=== PATIENT | female | born 1970 | race African-American/Black ===

== ENCOUNTER 2017-01-11 18:32 | Emergency (ER) | payer BC ==
[~2017-01-11 18:32] MED LIST: METFORMIN HCL500 MG PO; PROVENTIL0.09 MG/A1 IH; SYMBICORT1 AE2 IH
[2017-01-11 20:20] LABS: CALCIUM 8.7 mg/dL (8.5-10.1); CARBON DIOXIDE 30.4 mmol/L (21-32); CHLORIDE SERUM 108 mmol/L (98-107); GFR1 > 60 mL/min; GLUCOSE SERUM 77 mg/dL (74-106); POTASSIUM SERUM 4.1 mmol/L (3.5-5.1); SODIUM SERUM 142 mmol/L (136-145)
[2017-01-11 20:23] LABS: BASOPHIL % 0.9 % (0-2)
[2017-01-11 20:25] LABS: ALKALINE PHOSPHATASE 111 U/L (46-116); ALT/SGPT 29 U/L (14-59); AST/SGOT 17 U/L (15-37); BILIRUBIN TOTAL 0.4 mg/dL (0.20-1.00); TOTAL PROTEIN, SERUM 7.3 g/dL (6.4-8.2)
[2017-01-11 20:28] LABS: ALBUMIN 2.9 g/dL (3.4-5.0)
[2017-01-11 20:30] LABS: PLATELET COUNT 442 x10^3mcL (130-400); RED CELL DISTRIBUTION WIDTH 16.9 % (11.5-14.5)
[2017-01-11 22:32] VITALS: BP 105/88
== END 2017-01-11 22:32 | disposition home or self-care (01) ==
LOC: ED 18:32
PROVIDERS: Emergency Medicine
DX: M94.0 Chondrocostal junction syndrome [Tietze] (principal); F41.9 Anxiety disorder, unspecified; M19.90 Unspecified osteoarthritis, unspecified site; Z90.49 Acquired absence of other specified parts of digestive tract; K58.9 Irritable bowel syndrome, unspecified; Z88.0 Allergy status to penicillin; Z88.5 Allergy status to narcotic agent
CPT/HCPCS: 82962; J1885

== ENCOUNTER 2018-04-23 14:26 | Emergency (ER) | payer OTHER ==
[~2018-04-23] VITALS: Ht 167.6 cm; Wt 149.2 kg
[2018-04-23 14:28] VITALS: Ht 167.6 cm; Wt 149.2 kg
[2018-04-23 16:03] VITALS: BP 143/87
== END 2018-04-23 16:03 | disposition home or self-care (01) ==
LOC: ED 14:26
DX: M25.511 Pain in right shoulder (principal); M62.838 Other muscle spasm; N61.1 Abscess of the breast and nipple; E11.9 Type 2 diabetes mellitus without complications; J45.909 Unspecified asthma, uncomplicated; E66.01 Morbid (severe) obesity due to excess calories; M19.90 Unspecified osteoarthritis, unspecified site; Z68.43 Body mass index [BMI] 50.0-59.9, adult; Z90.49 Acquired absence of other specified parts of digestive tract
CPT/HCPCS: 82962

== ENCOUNTER 2018-05-15 14:27 | Emergency (ER) | payer OTHER ==
[~2018-05-15] VITALS: Ht 167.6 cm; Wt 149.2 kg
[2018-05-15 14:42] VITALS: Ht 167.6 cm; Wt 149.2 kg
[2018-05-15 16:39] LABS: PLATELET COUNT 407 x10^3mcL (130-400); RED CELL DISTRIBUTION WIDTH 17.1 % (11.5-14.5)
[2018-05-15 16:52] LABS: CALCIUM 9.6 mg/dL (8.5-10.1); CARBON DIOXIDE 30.1 mmol/L (21-32); CHLORIDE SERUM 104 mmol/L (98-107); CREATININE SERUM 0.8 mg/dL (0.6-1.0); GFR1 > 60 mL/min; GLUCOSE SERUM 89 mg/dL (74-106); POTASSIUM SERUM 3.9 mmol/L (3.5-5.1); SODIUM SERUM 140 mmol/L (136-145)
[2018-05-15 16:57] LABS: ALBUMIN 3.3 g/dL (3.4-5.0); ALKALINE PHOSPHATASE 119 U/L (46-116); ALT/SGPT 27 U/L (14-59); AST/SGOT 17 U/L (15-37); BILIRUBIN TOTAL 0.4 mg/dL (0.20-1.00)
[2018-05-15 17:48] VITALS: BP 140/89
== END 2018-05-15 17:48 | disposition home or self-care (01) ==
LOC: ED 14:27
PROVIDERS: Emergency Medicine
DX: R22.43 Localized swelling, mass and lump, lower limb, bilateral (principal); J45.909 Unspecified asthma, uncomplicated; E11.9 Type 2 diabetes mellitus without complications; F41.9 Anxiety disorder, unspecified; Z88.0 Allergy status to penicillin; Z88.6 Allergy status to analgesic agent; Z88.5 Allergy status to narcotic agent; Z90.49 Acquired absence of other specified parts of digestive tract
CPT/HCPCS: 36415; Q0092

== ENCOUNTER 2018-07-11 20:22 | Inpatient (IN) | payer OTHER ==
[~2018-07-11] VITALS: Ht 167.6 cm; Wt 148.0 kg
[2018-07-11 20:28] VITALS: Ht 167.6 cm; Wt 148.0 kg
[2018-07-11 22:18] LABS: BASOPHIL % 0.8 % (0-2); PLATELET COUNT 393 x10^3mcL (130-400)
[2018-07-11 22:21] LABS: RED CELL DISTRIBUTION WIDTH 17.4 % (11.5-14.5)
[2018-07-11 22:23] LABS: CALCIUM 8.9 mg/dL (8.5-10.1); CARBON DIOXIDE 29.9 mmol/L (21-32); CHLORIDE SERUM 106 mmol/L (98-107); CREATININE SERUM 0.9 mg/dL (0.6-1.0); GFR1 > 60 mL/min; GLUCOSE SERUM 99 mg/dL (74-106); POTASSIUM SERUM 3.4 mmol/L (3.5-5.1); SODIUM SERUM 143 mmol/L (136-145)
[2018-07-11 22:28] LABS: ALKALINE PHOSPHATASE 105 U/L (46-116); ALT/SGPT 25 U/L (14-59); AST/SGOT 16 U/L (15-37); BILIRUBIN TOTAL 0.2 mg/dL (0.20-1.00); TOTAL PROTEIN, SERUM 7.2 g/dL (6.4-8.2)
[2018-07-12 00:26] VITALS: BP 114/48
[2018-07-12 01:00] VITALS: BP 114/48
[2018-07-12 05:51] VITALS: BP 116/46
[2018-07-12 06:48] LABS: BASOPHIL % 0.7 % (0-2); PLATELET COUNT 373 x10^3mcL (130-400)
[2018-07-12 06:49] LABS: RED CELL DISTRIBUTION WIDTH 17.2 % (11.5-14.5)
[2018-07-12 07:05] LABS: CALCIUM 8.5 mg/dL (8.5-10.1); CARBON DIOXIDE 27.3 mmol/L (21-32); CHLORIDE SERUM 107 mmol/L (98-107); CREATININE SERUM 0.8 mg/dL (0.6-1.0); GFR1 > 60 mL/min; GLUCOSE SERUM 96 mg/dL (74-106); POTASSIUM SERUM 3.6 mmol/L (3.5-5.1); SODIUM SERUM 142 mmol/L (136-145)
[2018-07-12 09:10] VITALS: BP 124/52
[2018-07-12 12:13] VITALS: BP 111/59
[2018-07-12 15:22] VITALS: BP 111/59
== END 2018-07-12 17:09 | disposition home or self-care (01) | DRG 202 ==
LOC: ED 20:22 → DU 23:21
PROVIDERS: Emergency Medicine; ADMIT Internal Medicine Pulmonary Disease
DX: J45.901 Unspecified asthma with (acute) exacerbation (principal); Z68.43 Body mass index [BMI] 50.0-59.9, adult; I24.9 Acute ischemic heart disease, unspecified; F41.9 Anxiety disorder, unspecified; M19.90 Unspecified osteoarthritis, unspecified site; J10.1 Influenza due to other identified influenza virus with other respiratory manifestations; E66.01 Morbid (severe) obesity due to excess calories; R73.03 Prediabetes; Z77.22 Contact with and (suspected) exposure to environmental tobacco smoke (acute) (chronic); Z88.0 Allergy status to penicillin; Z88.5 Allergy status to narcotic agent; Z90.49 Acquired absence of other specified parts of digestive tract; Z79.899 Other long term (current) drug therapy
CPT/HCPCS: 82962; 83880; 87804; J7620; Q0092

== ENCOUNTER 2019-02-16 18:10 | Emergency (ER) | payer OTHER ==
[~2019-02-16] VITALS: Ht 165.1 cm; Wt 143.3 kg
[2019-02-16 18:16] VITALS: Ht 165.1 cm; Wt 143.3 kg
[2019-02-16 20:00] VITALS: BP 155/80
== END 2019-02-16 20:00 | disposition home or self-care (01) ==
LOC: ED 18:10
DX: I87.8 Other specified disorders of veins (principal); J45.909 Unspecified asthma, uncomplicated; E11.9 Type 2 diabetes mellitus without complications; F41.9 Anxiety disorder, unspecified; M19.90 Unspecified osteoarthritis, unspecified site; Z90.49 Acquired absence of other specified parts of digestive tract; Z88.0 Allergy status to penicillin; Z88.5 Allergy status to narcotic agent

== ENCOUNTER 2019-05-02 15:50 | Emergency (ER) | payer OTHER ==
[~2019-05-02] VITALS: Ht 167.6 cm; Wt 142.4 kg
[2019-05-02 15:59] VITALS: Ht 167.6 cm; Wt 142.4 kg
[2019-05-02 16:46] LABS: BASOPHIL % 0.2 % (0-2)
[2019-05-02 16:50] LABS: PLATELET COUNT 460 x10^3mcL (130-400); RED CELL DISTRIBUTION WIDTH 16.7 % (11.5-14.5)
[2019-05-02 16:56] LABS: CARBON DIOXIDE 31.4 mmol/L (21-32); CHLORIDE SERUM 101 mmol/L (98-107); CREATININE SERUM 0.9 mg/dL (0.6-1.0); GFR1 > 60 mL/min; GLUCOSE SERUM 89 mg/dL (74-106); POTASSIUM SERUM 4.2 mmol/L (3.5-5.1); SODIUM SERUM 137 mmol/L (136-145)
[2019-05-02 17:00] LABS: ALKALINE PHOSPHATASE 112 U/L (46-116); ALT/SGPT 26 U/L (14-59); AST/SGOT 12 U/L (15-37); BILIRUBIN TOTAL 0.31 mg/dL (0.20-1.00); TOTAL PROTEIN, SERUM 7.9 g/dL (6.4-8.2)
[2019-05-02 17:02] LABS: ALBUMIN 3.2 g/dL (3.4-5.0)
[2019-05-02 18:22] LABS: FREE T4 1.36 ng/dL (0.76-1.46); T4(THYROXINE) 13.9 ug/dL (4.7-13.3)
[2019-05-02 18:43] LABS: T3 TOTAL 1.39 ng/mL
[2019-05-02 20:12] VITALS: BP 111/77
== END 2019-05-02 20:12 | disposition home or self-care (01) ==
LOC: ED 15:50
PROVIDERS: Emergency Medicine
DX: R42 Dizziness and giddiness (principal); R10.13 Epigastric pain; J45.909 Unspecified asthma, uncomplicated; E11.9 Type 2 diabetes mellitus without complications; F41.9 Anxiety disorder, unspecified; M19.90 Unspecified osteoarthritis, unspecified site; Z90.49 Acquired absence of other specified parts of digestive tract; Z88.0 Allergy status to penicillin; Z88.5 Allergy status to narcotic agent
CPT/HCPCS: 36415; 82962; 84439

== ENCOUNTER 2019-07-13 08:06 | Emergency (ER) | payer OTHER ==
[~2019-07-13] VITALS: Ht 167.6 cm; Wt 144.0 kg
[2019-07-13 08:17] VITALS: BP 135/77; Ht 167.6 cm; Wt 144.0 kg
== END 2019-07-13 10:11 | disposition home or self-care (01) ==
LOC: ED 08:06
DX: M54.5 Low back pain (principal); J45.909 Unspecified asthma, uncomplicated; E11.9 Type 2 diabetes mellitus without complications; Z90.49 Acquired absence of other specified parts of digestive tract; Z88.0 Allergy status to penicillin; Z88.1 Allergy status to other antibiotic agents